=== PATIENT | male | born 1985 | race African-American/Black ===

== ENCOUNTER 2019-10-02 11:05 | Inpatient (IN) | payer OTHER ==
--- NOTE | 2019-10-02 12:10 | PDOC ---
History of Present Illness - General Chief Complaint: Edema Stated Complaint: EDEMA Time Seen by Provider: 10/02/19 11:27 - History of Present Illness Initial Comments: 34M PMH seizures (no longer on AEDs), "liver sensitivity" presenting with one year of b/l LE edema and LEWIS. Mother at bedside was concerned about pt's breathing and edema because mother has CHF. Pt states has had LEWIS for a year but noticed it may have worsened in the past week. Denies f/c, cp/palpitations, orthopnea, n/v, abd pain, GI or sx. Endorses b/l calf tightness when flexing at knee. Denies cough/hemoptysis, recent travel, recent surgery/immobilization. No premature cardiac or ACS in family. NKDA No PCP Denies tobacco Endorses occasional etoh Past History - Past Medical History Allergies/Adverse Reactions: Allergies Allergy/AdvReac Type Severity Reaction Status Date / Time No Known Allergies Allergy Verified 10/02/19 11:14 Home Medications: Ambulatory Orders levETIRAcetam [Keppra -] 500 mg PO BID 10/02/19 Carvedilol [Coreg -] 25 mg PO BID #60 tablet 10/07/19 Furosemide [Lasix -] 20 mg PO DAILY #30 tablet 10/07/19 Isosorbide Mononitrate [Ismo -] 20 mg PO BIDISMO #60 tablet 10/07/19 Magnesium Oxide [Mag-Ox -] 400 mg PO DAILY #30 tablet 10/07/19 Potassium Chloride [K-Dur -] 40 meq PO DAILY #30 tablet.er 10/07/19 Sacubitril/Valsartan [Entresto 24 mg-26 mg Tablet] 1 tab PO BID #60 tablet 10/07 Spironolactone [Aldactone -] 25 mg PO DAILY #30 tablet 10/07/19 hydrALAZINE HCL [Apresoline -] 25 mg PO BID #60 tablet 10/07/19 COPD: No Seizures: Yes (LAST 2019 ON KEPPRA) - Immunization History Immunization Up to Date: No - Psycho Social/Smoking Cessation Hx Smoking History: Never smoked Hx Alcohol Use: No Drug/Substance Use Hx: No Review of Systems - Review of Systems Comments:: CONSTITUTIONAL: Denies F / C HEENT: Denies headache, lightheadedness, dizziness, changes in vision / hearing , diplopia RESP: Endorses LEWIS, unchanged. Denies orthopnea. CARD: Denies chest pain, palpitations GI: Denies N / V / D, abdominal pain, bloody stool, inability to tolerate PO : Denies dysuria, frequency SKIN: Denies rashes NEURO: Denies numbness, tingling, weakness MSK: Denies back pain *Physical Exam - Vital Signs Last Vital Signs Temp Pulse Resp BP Pulse Ox 97.0 F L 74 18 158/123 H 99 10/02/19 11:17 10/02/19 11:17 10/02/19 11:17 10/02/19 11:17 10/02/19 11:17 - Physical Exam GEN: Well appearing, NAD, comfortable. AAOx3. HEENT: NC/AT, EOMI, PERRL. No facial asymmetry. Moist mucous membranes. Normal voice. Supple neck w/ FROM. CV: S1/S2, tachycardic, +gallop. No JVD. LUNG: CTAB, no wheezes, crackles GI: Soft, ndnt, +BS, no guarding, no rebound. EXTREMITIES: 2+ distal pulses. 3+ pitting edema b/l LE up to thighs SKIN: Warm, dry, no rashes appreciated. PSYCH: Normal mood and affect. NEURO: Moving all extremities ED Treatment Course - LABORATORY CBC & Chemistry Diagram: 10/04/19 06:00 10/07/19 06:00 - RADIOLOGY Radiology Studies Ordered: Category Date Time Status CHEST PA & LAT [RAD] Stat Radiology 10/02/19 11:48 Ordered Medical Decision Making - Medical Decision Making 10/02/19 11:59 34M c/o 1 year of b/l LE edema and LEWIS. 3+ pitting edema up to thighs; +gallop on heart exam, no JVD; clear lungs Given chronicity of sx - less likely VTE. considering thyroid, vascular pathology. Likely CHF though patient is young. - CBC, CMP, Cardiac, TSH, BNP - EKG - CXR EKG 1122 HR 124 WA 138 QRS 86 QTc 485 Sinus tachycardia, nonspecific t-wave abnormalities 10/02/19 12:32 Bedside ECHO showing ventricular dilation, poor cardiac squeeze, small pericardial effusion 10/02/19 13:36 PA/LAT CXR shows enlarged globular heart 10/02/19 13:49 labs reviewed trop 0.08 BNP [id number] admit for CHF Discharge - Discharge Information Problems reviewed: Yes Clinical Impression/Diagnosis: Congestive heart failure Qualifiers: Heart failure type: combined systolic and diastolic Heart failure chronicity: acute on chronic Qualified Code(s): I50.43 - Acute on chronic combined systolic (congestive) and diastolic (congestive) heart failure Condition: Stable - Admission Yes - Follow up/Referral - Patient Discharge Instructions - Post Discharge Activity
[2019-10-02 12:54] LABS: BASO % 0.4 % (0-2.0); EOS % 0.3 % (0-4.5); HEMATOCRIT 44.5 % (35.4-49); HEMOGLOBIN 14.4 GM/dL (11.7-16.9); LYMPH % 11.9 % (8-40); MCH 28.8 pg (25.7-33.7); MCHC 32.4 g/dl (32.0-35.9); MEAN CELL VOLUME 88.8 fl (80-96); MEAN PLT VOLUME 8.5 fl (7.5-11.1); MONO % 6.3 % (3.8-10.2); NEUT % 81.1 % (42.8-82.8); PLATELET COUNT 226 K/MM3 (134-434); RBC 5.01 M/mm3 (4.00-5.60); WHITE BLOOD COUNT 5.9 K/mm3 (4.0-10.0)
[2019-10-02 13:34] LABS: ALBUMIN 2.9 g/dl (3.4-5.0); BILIRUBIN,TOTAL 2.7 mg/dL (0.2-1); BLOOD UREA NITROGEN 26.6 mg/dL (7-18); CALCIUM 9.3 mg/dL (8.5-10.1); CREATININE 1.9 mg/dL (0.55-1.3); N-TERMINAL BNP 16050.6 pg/ml (5-125); POTASSIUM 4.6 mmol/L (3.5-5.1); TOT PROT 6.7 g/dl (6.4-8.2)
--- NOTE | 2019-10-02 14:03 | CON.CARD ---
Consult Consult Specialty:: Cardiology Referred by:: Emergency Medicine Reason for Consultation:: Newly diagnosed cardiomyopathy - History of Present Illness Chief Complaint: Dyspnea, LE edema History of Present Illness: 34M PMH seizure d/o, family h/o dilated cardiomyopathy (mother) presenting with progressive b/l LE edema, LEWIS and decreased exercise capacity. Patient denies chest pain, palpitations, near or true syncope, palpitations, orthopnea, PND, flu-like illness. Occasional ETOH, denies toxic habits. NKDA No PCP Denies tobacco Endorses occasional etoh - History Source History Provided By: Patient Limitations to Obtaining History: No Limitations - Alcohol/Substance Use Hx Alcohol Use: No - Smoking History Smoking history: Never smoked Home Medications - Allergies Allergies/Adverse Reactions: Allergies Allergy/AdvReac Type Severity Reaction Status Date / Time No Known Allergies Allergy Verified 10/02/19 11:14 - Home Medications Home Medications: Ambulatory Orders levETIRAcetam [Keppra -] 500 mg PO BID 10/02/19 Review of Systems - Review of Systems Cardiovascular: reports: Edema, Shortness of Breath Respiratory: reports: Exercise Intolerance, SOB, SOB on Exertion Vital Signs: Vital Signs Temperature 97.0 F L 10/02/19 11:17 Pulse Rate 74 10/02/19 11:17 Respiratory Rate 18 10/02/19 11:17 Blood Pressure 158/123 H 10/02/19 11:17 O2 Sat by Pulse Oximetry (%) 99 10/02/19 11:17 Constitutional: Yes: No Distress, Calm Neck: Yes: Supple Respiratory: Yes: Regular, Diminished, On Nasal O2 Gastrointestinal: Yes: Normal Bowel Sounds, Soft Cardiovascular: Yes: Tachycardia JVD: No Carotid Bruit: No Heart Sounds: Yes: S1, S2 Murmur: Yes: Systolic Murmur, Grade 1 Extremities: Yes: Other (Warm and well-perfused) Edema: Yes Edema: LLE: 2+, RLE: 2+ - Other Data Labs, Other Data: CBC, BMP 10/02/19 12:30 10/02/19 12:30 Troponin, BNP 10/02/19 12:30 Troponin I 0.08 H B-Natriuretic Peptide 24691.6 H Troponin, BNP 10/02/19 12:30 Troponin I 0.08 H B-Natriuretic Peptide 40465.6 H Sinus tachycardia @124 LAE, LAD nonspec ST-T changes Prior Cardiac Procedures: PTCA with Stent Imaging - Results Chest X-ray: Report Reviewed (Marked cardiomyopathy) Problem List - Problems (1) Hypertensive heart and chronic kidney disease Code(s): I13.10 - HYP HRT & CHR KDNY DIS W/O HRT FAIL, W STG 1-4/UNSP CHR KDNY Qualifiers: Chronic kidney disease stage: unspecified stage Heart failure presence: with heart failure Heart failure type: combined systolic and diastolic Heart failure chronicity: acute Qualified Code(s): I13.0 - Hypertensive heart and chronic kidney disease with heart failure and stage 1 through stage 4 chronic kidney disease, or unspecified chronic kidney disease; I50.41 - Acute combined systolic (congestive) and diastolic (congestive) heart failure (2) Acute kidney injury Code(s): N17.9 - ACUTE KIDNEY FAILURE, UNSPECIFIED (3) Congestive heart failure Code(s): I50.9 - HEART FAILURE, UNSPECIFIED Qualifiers: Heart failure type: combined systolic and diastolic Heart failure chronicity: acute on chronic Qualified Code(s): I50.43 - Acute on chronic combined systolic (congestive) and diastolic (congestive) heart failure (4) Subendocardial ischemia Code(s): I24.8 - OTHER FORMS OF ACUTE ISCHEMIC HEART DISEASE Assessment/Plan 1. Acute on chronic systolic heart failure suspicious of newly diagnosed cardiomyopathy (likely familial as mother also has dilated cardiomyopathy) 2. Seizure d/o on AED 3. Sinus tachycardia 4. JUNAID referable to #1, unknown baseline 5. Subendocardial ischemia 6. Hypertensive cardiomyopathy with failure P:1. IV diuresis with monitor diuretic response, renal fxn and electrolytes 2. Carvedilol 6.25 bid, Diovan 80 qd once renal fxn at baseline, with uptitration as hemodynamics tolerate 3. F/u echocardiogram to assess ventricular and valve fxn, renal U/S, trend troponins to document peak, Ha1c, TFT and lipid panel, if newly diagnosed cardiomyopathy would benefit from R&LHc to establish etiology 4. Thank you for consultative opportunity
--- NOTE | 2019-10-02 14:38 | HP ---
Admitting History and Physical - Primary Care Physician PCP: Diego Ashton - Admission History of Present Illness: 34M PMH seizure d/o, family h/o dilated cardiomyopathy (mother) presenting with progressive b/l LE edema, LEWIS and decreased exercise capacity. Patient denies chest pain, palpitations, near or true syncope, palpitations, orthopnea, PND, flu-like illness. Occasional ETOH, denies toxic habits. - Smoking History Smoking history: Never smoked - Alcohol/Substance Use Hx Alcohol Use: No Home Medications - Allergies Allergies/Adverse Reactions: Allergies Allergy/AdvReac Type Severity Reaction Status Date / Time No Known Allergies Allergy Verified 10/02/19 11:14 - Home Medications Home Medications: Ambulatory Orders levETIRAcetam [Keppra -] 500 mg PO BID 10/02/19 Physical Examination Vital Signs: Vital Signs Temperature 97.0 F L 10/02/19 11:17 Pulse Rate 120 H 10/02/19 14:30 Respiratory Rate 34 H 10/02/19 14:30 Blood Pressure 158/122 H 10/02/19 14:30 O2 Sat by Pulse Oximetry (%) 100 10/02/19 14:30 Constitutional: Yes: No Distress HENT: Yes: Atraumatic Neck: Yes: Supple Cardiovascular: Yes: Regular Rate and Rhythm Respiratory: Yes: Rhonchi Gastrointestinal: Yes: Normal Bowel Sounds Extremities: Yes: WNL Edema: Yes Edema: LLE: 2+, RLE: 2+ Neurological: Yes: Alert, Oriented Labs: CBC, BMP 10/02/19 12:30 10/02/19 12:30 Problem List - Problems (1) Acute kidney injury Code(s): N17.9 - ACUTE KIDNEY FAILURE, UNSPECIFIED (2) Congestive heart failure Assessment/Plan: on iv lasix cardio on board Code(s): I50.9 - HEART FAILURE, UNSPECIFIED Qualifiers: Heart failure type: combined systolic and diastolic Heart failure chronicity: acute on chronic Qualified Code(s): I50.43 - Acute on chronic combined systolic (congestive) and diastolic (congestive) heart failure (3) Hypertensive heart and chronic kidney disease Code(s): I13.10 - HYP HRT & CHR KDNY DIS W/O HRT FAIL, W STG 1-4/UNSP CHR KDNY Qualifiers: Chronic kidney disease stage: unspecified stage Heart failure presence: with heart failure Heart failure type: combined systolic and diastolic Heart failure chronicity: acute Qualified Code(s): I13.0 - Hypertensive heart and chronic kidney disease with heart failure and stage 1 through stage 4 chronic kidney disease, or unspecified chronic kidney disease; I50.41 - Acute combined systolic (congestive) and diastolic (congestive) heart failure (4) Subendocardial ischemia Code(s): I24.8 - OTHER FORMS OF ACUTE ISCHEMIC HEART DISEASE Assessment/Plan Laboratory Tests 10/02/19 10/02/19 12:30 12:30 WBC 5.9 RBC 5.01 Hgb 14.4 Hct 44.5 MCV 88.8 MCH 28.8 MCHC 32.4 RDW 20.0 H Plt Count 226 MPV 8.5 Absolute Neuts (auto) 4.8 Neutrophils % 81.1 Lymphocytes % 11.9 Monocytes % 6.3 Eosinophils % 0.3 Basophils % 0.4 Nucleated RBC % 0 Sodium 140 Potassium 4.6 Chloride 105 Carbon Dioxide 26 Anion Gap 9 BUN 26.6 H Creatinine 1.9 H Est GFR (CKD-EPI)AfAm 52.89 Est GFR (CKD-EPI)NonAf 45.63 Random Glucose 91 Calcium 9.3 Total Bilirubin 2.7 H AST 37 ALT 39 Alkaline Phosphatase 208 H Creatine Kinase 158 Creatine Kinase Index 2.8 CK-MB (CK-2) 4.5 H Troponin I 0.08 H B-Natriuretic Peptide 65080.6 H Total Protein 6.7 Albumin 2.9 L TSH 3.93 H Active Medications Generic Name Dose Route Start Last Admin Trade Name Freq PRN Reason Stop Dose Admin Carvedilol 6.25 mg 10/02/19 14:24 10/02/19 14:49 Coreg - PO 6.25 mg BID MARIELA Administration Furosemide 40 mg 10/02/19 14:23 10/02/19 14:49 Lasix Injection - IVPUSH 40 mg BID@0600,1400 MARIELA Administration Heparin Sodium (Porcine) 5,000 unit 10/02/19 22:00 Heparin - SQ BID MARIELA Active Medications Generic Name Dose Route Start Last Admin Trade Name Freq PRN Reason Stop Dose Admin Carvedilol 12.5 mg 10/03/19 12:03 Coreg - PO BID MARIELA Furosemide 40 mg 10/02/19 14:23 10/03/19 14:25 Lasix Injection - IVPUSH 40 mg BID@0600,1400 MARIELA Administration Heparin Sodium (Porcine) 5,000 unit 10/02/19 22:00 10/03/19 11:15 Heparin - SQ 5,000 unit BID MARIELA Administration Hydralazine HCl 25 mg 10/03/19 12:15 10/03/19 13:25 Apresoline - PO 25 mg BID MARIELA Administration Isosorbide Mononitrate 10 mg 10/03/19 17:00 [facility]
[2019-10-02] MEDS ORDERED: CARVEDILOL 3.125 MG TABLET (FP) ONE (14:45)
[2019-10-02] MEDS ORDERED: FUROSEMIDE 40 MG/4 ML INJECTABLE VIAL ONE (14:45)
[2019-10-02] MEDS: CARVEDILOL 6.25 MG TABLET (FP) PO SCH ×2 (14:49→22:32)
[2019-10-02] MEDS: FUROSEMIDE 40 MG/4 ML INJECTABLE VIAL IVPUSH SCH (14:49)
--- NOTE | 2019-10-02 15:17 | PDOC ---
Attending Attestation - Resident Resident Name: Flex Vegas - ED Attending Attestation I have performed the following: I have examined & evaluated the patient, The case was reviewed & discussed with the resident, I agree w/resident's findings & plan, Exceptions are as noted - HPI HPI: 10/02/19 15:16 34 years old with seizure disorder family history of dilated cardiomyopathy with progressive lower extremity weakness dyspnea on exertion and decreased exercise capacity for the last week patient has had this edema for greater than 1 year but his symptoms have been substantially worse over the last week - Physicial Exam PE: 10/02/19 15:18 Vitals: Triage Vital signs reviewed General Appearance: No acute distress, well nourished well developed, Head: Atraumatic, Cardiac: Regular rate and rhythym systolic ejection murmur is coming down Lungs: Clear to auscultation bilateral, good air movement bilaterally, Abdomen: Soft, non distended, normal bowel sounds, non tender to palpation Extremities: 2+ pitting edema bilaterally lower extremities Skin: Warm and dry, no rashes or lesions, no rash, no petechiae Psych: Normal mood, normal affect - Medical Decision Making 10/02/19 15:18 Acute on chronic CHF never formally diagnosed patient will require diuresis formal echo with careful electrolyte monitoring We will admit to medicine for further management and cardiology consultation
[2019-10-02] MEDS ORDERED: HEPARIN NA (PORCINE) 5,000 UNITS/ML 1ML VIAL ONE (22:25)
[2019-10-02] MEDS: HEPARIN NA (PORCINE) 5,000 UNITS/ML 1ML VIAL SQ SCH (22:32)
[2019-10-03] MEDS ORDERED: FUROSEMIDE 40 MG/4 ML INJECTABLE VIAL ONE (06:06)
[2019-10-03] MEDS: FUROSEMIDE 40 MG/4 ML INJECTABLE VIAL IVPUSH SCH ×2 (06:19→14:25)
[2019-10-03 07:56] LABS: BLOOD UREA NITROGEN 27.2 mg/dL (7-18); CALCIUM 9.3 mg/dL (8.5-10.1); POTASSIUM 4.3 mmol/L (3.5-5.1)
[2019-10-03] MEDS: HEPARIN NA (PORCINE) 5,000 UNITS/ML 1ML VIAL SQ SCH ×2 (11:15→21:19)
[2019-10-03] MEDS: CARVEDILOL 6.25 MG TABLET (FP) PO SCH (11:15)
--- NOTE | 2019-10-03 11:28 | ECHO ---
Version: 1 Name: LISA OLIVARES Exam: Adult Echocardiogram Study Date: 10/03/2019, 10:00 AM Age: 34 Years MMode/2D Measurements & Calculations IVSd: 1.36 cm LVIDs: 5.9 cm LVIDd: 6.9 cm LVPWd: 1.42 cm LAV (MOD-bp): 88.5 ml LVOT diam: 2.04 cm Ao root diam: 2.36 cm LA dimension: 4.1 cm Doppler Measurements & Calculations MV E max jose raul: 50.7 cm/sec Med E/e': 13.7 MV A max jose raul: 46.0 cm/sec Med Peak E' Jose Raul: 3.7 cm/sec MV E/A: 1.10 Lat E/e': 13.7 Lat Peak E' Jose Raul: 3.7 cm/sec MR max P.6 mmHg Ao max P.70 mmHg Ao V2 max: 65.2 cm/sec TR max jose raul: 188.0 cm/sec TR max P.3 mmHg Procedure A complete two-dimensional transthoracic echocardiogram was performed (2D, M-mode, Doppler and color flow Doppler). Left Ventricle The left ventricle is mildly dilated. Left ventricular systolic function is severely reduced. Ejecti on Fraction = 10%. Fused E/A wave precludes diastolic assessment. Right Ventricle The right ventricle is mildly dilated. The right ventricular systolic function is moderately reduced . Atria The left atrium is mildly dilated. The right atrium is moderately dilated. Mitral Valve The mitral valve is normal in structure and function. There is moderate mitral regurgitation. Tricuspid Valve Tricuspid leaflets do not coapt. There is severe Tricuspid regurgitation. PASP cannot be estimated. Assuming the RA pressure is 20 mmHg. Aortic Valve The aortic valve is normal in structure and function. No hemodynamically significant valvular aortic stenosis. No aortic regurgitation is present. Pulmonic Valve The pulmonic valve is normal in structure and function. Great Vessels The aortic root is normal size. Pericardium/Pleura Moderate pericardial effusion (1-2 cm). There are no echocardiographic indications of cardiac tampon luep. Summary Statements The left ventricle is mildly dilated. Left ventricular systolic function is severely reduced. The right ventricle is mildly dilated. The right ventricular systolic function is moderately reduced . Tricuspid leaflets do not coapt. There is severe Tricuspid regurgitation. PASP cannot be estimated. Moderate pericardial effusion (1-2 cm). There are no echocardiographic indications of cardiac tampon lupe. Moy Velazquez 10/03/2019, 11:27 AM Ordering Physician: Tyson Lechuga Performed By: Eileen Jurado
--- NOTE | 2019-10-03 11:30 | EKG ---
Test Reason : Blood Pressure : / mmHG Vent. Rate : 124 BPM Atrial Rate : 124 BPM P-R Int : 138 ms QRS Dur : 086 ms QT Int : 338 ms P-R-T Axes : 061 -48 013 degrees QTc Int : 485 ms SINUS TACHYCARDIA POSSIBLE LEFT ATRIAL ENLARGEMENT LEFT ANTERIOR FASCICULAR BLOCK NONSPECIFIC ST AND T WAVE ABNORMALITY ABNORMAL ECG Confirmed by Praneeth Bowman MD ([id number]) on 10/03/2019 11:30:28 AM Referred By: Confirmed By:Praneeth Bowman MD
--- NOTE | 2019-10-03 11:53 | PN ---
Progress Note, Physician Chief Complaint: Events noted Not in distress History of Present Illness: Patient was seen and examined. Awake and alert. Chart was reviewed Denies chest pain, SOB or palpitations this am - Current Medication List Current Medications: Active Medications Carvedilol (Coreg -) 6.25 mg PO BID [facility] Last Admin: 10/03/19 11:15 Dose: 6.25 mg Furosemide (Lasix Injection -) 40 mg IVPUSH BID@0600,1400 [facility] Last Admin: 10/03/19 06:19 Dose: 40 mg Heparin Sodium (Porcine) (Heparin -) 5,000 unit SQ BID [facility] Last Admin: 10/03/19 11:15 Dose: 5,000 unit - Objective Vital Signs: Vital Signs Temperature 97.9 F 10/03/19 07:00 Pulse Rate 98 H 10/03/19 11:17 Respiratory Rate 28 H 10/03/19 11:17 Blood Pressure 141/104 H 10/03/19 11:17 O2 Sat by Pulse Oximetry (%) 100 10/03/19 11:17 Eyes: Yes: PERRL HENT: Yes: Atraumatic Neck: Yes: Supple Cardiovascular: Yes: Regular Rate and Rhythm, S1, S2 Respiratory: Yes: CTA Bilaterally Gastrointestinal: Yes: Normal Bowel Sounds, Soft Edema: Yes Edema: LLE: 1+, RLE: 1+ Additional Findings/Remarks: - Review of Systems Constitutional: denies: Chills, Fever Cardiovascular: (+) Chest Pain, Shortness of Breath. denies: Palpitations Respiratory: denies Cough, (+) SOB, SOB on Exertion, denies: Wheezing. denies: Orthopnea, PND Genitourinary: denies: Discharge, Hematuria Neurological: denies: Dizziness, Headache, Seizure, Syncope Labs: CBC, BMP 10/02/19 12:30 10/03/19 06:00 Problem List - Problems (1) Dilated cardiomyopathy Code(s): I42.0 - DILATED CARDIOMYOPATHY (2) HFrEF (heart failure with reduced ejection fraction) Code(s): I50.20 - UNSPECIFIED SYSTOLIC (CONGESTIVE) HEART FAILURE Qualifiers: Heart failure chronicity: acute on chronic Qualified Code(s): I50.23 - Acute on chronic systolic (congestive) heart failure (3) Acute kidney injury Code(s): N17.9 - ACUTE KIDNEY FAILURE, UNSPECIFIED (4) Congestive heart failure Code(s): I50.9 - HEART FAILURE, UNSPECIFIED Qualifiers: Heart failure type: combined systolic and diastolic Heart failure chronicity: acute on chronic Qualified Code(s): I50.43 - Acute on chronic combined systolic (congestive) and diastolic (congestive) heart failure (5) Hypertensive heart and chronic kidney disease Code(s): I13.10 - HYP HRT & CHR KDNY DIS W/O HRT FAIL, W STG 1-4/UNSP CHR KDNY Qualifiers: Chronic kidney disease stage: unspecified stage Heart failure presence: with heart failure Heart failure type: combined systolic and diastolic Heart failure chronicity: acute Qualified Code(s): I13.0 - Hypertensive heart and chronic kidney disease with heart failure and stage 1 through stage 4 chronic kidney disease, or unspecified chronic kidney disease; I50.41 - Acute combined systolic (congestive) and diastolic (congestive) heart failure (6) Subendocardial ischemia Code(s): I24.8 - OTHER FORMS OF ACUTE ISCHEMIC HEART DISEASE Assessment/Plan 1. Acute on chronic systolic heart failure with newly diagnosed dilated cardiomyopathy (likely familial as mother also has dilated cardiomyopathy), HFrEF 2. Seizure disorder 3. Sinus tachycardia 4. JUNAID 5. Subendocardial ischemia 6. HTN PLAN: 1. IV diuresis with monitoring renal function and electrolytes 2. Increase Carvedilol to 12.5 mg BID, add Isosorbide Rock 30 mg QD and Hydralazine 25 mg BID. Other option is to use ARB if renal function stabilizes or to use Entresto. Consider using Eplerenone or Spironolactone if renal function stabilizes. 3. Echocardiography was reviewed with severely reduced LVEF. Consider right and left heart cardiac catheterization once clinically stabilized. 4. Consider LifeVest fitting prior to discharge and if LVEF remains less than 35 % after 90 days, will need ICD for primary prophylaxis 5. Consider genetic testing as outpatient Further plans are to follow Riley Francisco MD
[2019-10-03] MEDS ORDERED: hydrALAZINE HCL 25 MG TABLET (FP) ONE (13:23)
[2019-10-03] MEDS: hydrALAZINE HCL 25 MG TABLET (FP) PO SCH ×2 (13:25→21:19)
--- NOTE | 2019-10-03 13:55 | PN ---
Progress Note, Physician - Current Medication List Current Medications: Active Medications Carvedilol (Coreg -) 12.5 mg PO BID [facility] Furosemide (Lasix Injection -) 40 mg IVPUSH BID@0600,1400 [facility] Last Admin: 10/03/19 06:19 Dose: 40 mg Heparin Sodium (Porcine) (Heparin -) 5,000 unit SQ BID [facility] Last Admin: 10/03/19 11:15 Dose: 5,000 unit Hydralazine HCl (Apresoline -) 25 mg PO BID [facility] Last Admin: 10/03/19 13:25 Dose: 25 mg Isosorbide [facility] (Is[facility] -) [facility] - Objective Vital Signs: Vital Signs Temperature 97.9 F 10/03/19 07:00 Pulse Rate 95 H 10/03/19 13:21 Respiratory Rate 10/03/19 13:21 Blood Pressure 142/99 10/03/19 13:21 O2 Sat by Pulse Oximetry (%) 100 10/03/19 13:21 Constitutional: Yes: No Distress HENT: Yes: Atraumatic Neck: Yes: Supple Cardiovascular: Yes: Regular Rate and Rhythm Respiratory: Yes: CTA Bilaterally Gastrointestinal: Yes: Normal Bowel Sounds Extremities: Yes: WNL Edema: Yes Edema: LLE: 2+, RLE: 2+ Neurological: Yes: Alert, Oriented Labs: CBC, BMP 10/02/19 12:30 10/03/19 06:00 Problem List - Problems (1) Acute kidney injury Assessment/Plan: renal consult Code(s): N17.9 - ACUTE KIDNEY FAILURE, UNSPECIFIED (2) Congestive heart failure Assessment/Plan: on iv lasix cardio on board Code(s): I50.9 - HEART FAILURE, UNSPECIFIED Qualifiers: Heart failure type: combined systolic and diastolic Heart failure chronicity: acute on chronic Qualified Code(s): I50.43 - Acute on chronic combined systolic (congestive) and diastolic (congestive) heart failure (3) Hypertensive heart and chronic kidney disease Assessment/Plan: on meds Code(s): I13.10 - HYP HRT & CHR KDNY DIS W/O HRT FAIL, W STG 1-4/UNSP CHR KDNY Qualifiers: Chronic kidney disease stage: unspecified stage Heart failure presence: with heart failure Heart failure type: combined systolic and diastolic Heart failure chronicity: acute Qualified Code(s): I13.0 - Hypertensive heart and chronic kidney disease with heart failure and stage 1 through stage 4 chronic kidney disease, or unspecified chronic kidney disease; I50.41 - Acute combined systolic (congestive) and diastolic (congestive) heart failure (4) Subendocardial ischemia Code(s): I24.8 - OTHER FORMS OF ACUTE ISCHEMIC HEART DISEASE
[2019-10-03 17:20] VITALS: BMI 27.8
[2019-10-03] MEDS ORDERED: PT OWN MED DRAWER 7, Y5N ONE (18:03)
[2019-10-03] MEDS: ISOSORBIDE MONONITRATE 10 MG TABLET PO SCH (18:45)
[2019-10-03] MEDS: CARVEDILOL 12.5 MG TABLET (FP) PO SCH (21:19)
[2019-10-04] MEDS: FUROSEMIDE 40 MG/4 ML INJECTABLE VIAL IVPUSH SCH ×2 (05:50→13:24)
[2019-10-04 08:12] LABS: BASO % 0.2 % (0-2.0); EOS % 0.5 % (0-4.5); HEMATOCRIT 44.3 % (35.4-49); HEMOGLOBIN 14.7 GM/dL (11.7-16.9); LYMPH % 20.1 % (8-40); MCHC 33.2 g/dl (32.0-35.9); MEAN CELL VOLUME 87.4 fl (80-96); MEAN PLT VOLUME 8.6 fl (7.5-11.1); MONO % 6.4 % (3.8-10.2); NEUT % 72.8 % (42.8-82.8); PLATELET COUNT 237 K/MM3 (134-434); RBC 5.07 M/mm3 (4.00-5.60); RDW 19.2 % (11.9-15.9); WHITE BLOOD COUNT 4.4 K/mm3 (4.0-10.0)
[2019-10-04 08:37] LABS: ALBUMIN 2.4 g/dl (3.4-5.0); BLOOD UREA NITROGEN 25.8 mg/dL (7-18); CALCIUM 8.7 mg/dL (8.5-10.1); CREATININE 1.8 mg/dL (0.55-1.3); POTASSIUM 3.6 mmol/L (3.5-5.1); TOT PROT 5.9 g/dl (6.4-8.2)
--- NOTE | 2019-10-04 09:16 | CONSULT ---
Consultation: REQUESTING PROVIDER: Dr. 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 seen a tong carrier- is mother has history of diastolic CHF (diagnosed at age 63) notable labs in ED- Cr 1.9 ; BNP <71346- echo showed severely reduced EF- renal US results pending; patient started on lasix IV 40 BID REVIEW OF SYSTEMS: CONSTITUTIONAL: Absent: fever, chills, diaphoresis, generalized weakness, malaise, loss of appetite, weight change HEENT: Absent: rhinorrhea, nasal congestion, throat pain, throat swelling, difficulty swallowing, mouth swelling, ear pain, eye pain, visual changes CARDIOVASCULAR: Present: peripheral edema Absent: chest pain, syncope, palpitations, irregular heart rate, lightheadedness, RESPIRATORY: Present: dyspnea on exertion, shortness of breath Absent: cough, orthopnea, wheezing, stridor, hemoptysis GASTROINTESTINAL: Absent: abdominal pain, abdominal distension, nausea, vomiting, diarrhea, constipation, melena, hematochezia GENITOURINARY: Absent: dysuria, frequency, urgency, hesitancy, hematuria, flank pain, genital pain MUSCULOSKELETAL: Absent: myalgia, arthralgia, joint swelling, back pain, neck pain SKIN: Absent: rash, itching, pallor HEMATOLOGIC/IMMUNOLOGIC: Absent: easy bleeding, easy bruising, lymphadenopathy, frequent infections ENDOCRINE: Absent: unexplained weight gain, unexplained weight loss, heat intolerance, cold intolerance NEUROLOGIC: Absent: headache, focal weakness or paresthesias, dizziness, unsteady gait, seizure, mental status changes, bladder or bowel incontinence PSYCHIATRIC: Absent: anxiety, depression, suicidal or homicidal ideation, hallucinations. PHYSICAL EXAMINATION Vital Signs - 24 hr 10/03/19 10/03/19 10/03/19 11:17 13:21 14:23 Temperature 98 F Pulse Rate 98 H Pulse Rate [ 98 H 95 H Apical] Respiratory 28 H 20 22 H Rate Blood Pressure 138/112 H Blood Pressure 141/104 H 142/99 [Right Arm] O2 Sat by Pulse 100 100 Oximetry (%) 10/03/19 10/03/19 10/03/19 15:38 17:02 19:00 Temperature 98.5 F 97.8 F Pulse Rate 98 H 95 H Pulse Rate [ Apical] Respiratory 21 H Rate Blood Pressure 127/90 131/101 H Blood Pressure [Right Arm] O2 Sat by Pulse 98 Oximetry (%) 10/03/19 10/04/19 10/04/19 21:00 02:00 06:00 Temperature 97.5 F L 97.7 F 97.5 F L Pulse Rate 98 H 91 H 99 H Pulse Rate [ Apical] Respiratory 18 18 18 Rate Blood Pressure 136/99 131/71 126/86 Blood Pressure [Right Arm] O2 Sat by Pulse 99 Oximetry (%) GENERAL: Awake, alert, and fully oriented, in no acute distress. EYES: PEERLA; EOMI; no scleral icterus NECK: no JVD; no lymphadenopathy LUNGS: CTA B/L; no rales/rhonchior wheezing HEART: Regular rate and rhythm, normal S1 and S2 without murmur, rub or gallop. ABDOMEN: Soft, NT/ND +BS in all 4 quadrants MUSCULOSKELETAL: Normal range of motion at all joints. No bony deformities or tenderness. No CVA tenderness. EXTREMITIES; warm well-perfused 2+ pitting edema B/L NEUROLOGICAL: Cranial nerves II-XII intact. Normal speech. Normal gait. PSYCHIATRIC: Cooperative. Good eye contact. Appropriate mood and affect. SKIN: Warm, dry, normal turgor, no rashes or lesions noted. Laboratory Results - last 24 hr 10/04/19 10/04/19 06:00 06:00 WBC 4.4 RBC 5.07 Hgb 14.7 Hct 44.3 MCV 87.4 MCH 29.0 MCHC 33.2 RDW 19.2 H Plt Count 237 MPV 8.6 Absolute Neuts (auto) 3.2 Neutrophils % 72.8 Lymphocytes % 20.1 D Monocytes % 6.4 Eosinophils % 0.5 Basophils % 0.2 Nucleated RBC % 0 Sodium 137 Potassium 3.6 Chloride 97 L Carbon Dioxide 30 Anion Gap 10 BUN 25.8 H Creatinine 1.8 H Est GFR (CKD-EPI)AfAm 56.46 Est GFR (CKD-EPI)NonAf 48.71 Random Glucose 78 Calcium 8.7 Total Bilirubin 2.0 H AST 33 ALT 34 Alkaline Phosphatase 188 H Total Protein 5.9 L Albumin 2.4 L Active Medications Generic Name Dose Route Start Last Admin Trade Name Jaylon PRN Reason Stop Dose Admin Carvedilol 12.5 mg 10/03/19 12:03 10/03/19 21:19 Coreg - PO 12.5 mg BID MARIELA Administration Furosemide 40 mg 10/02/19 14:23 10/04/19 05:50 Lasix Injection - IVPUSH 40 mg BID@0600,1400 MARIELA Administration Heparin Sodium (Porcine) 5,000 unit 10/02/19 22:00 10/03/19 21:19 Heparin - SQ 5,000 unit BID MARIELA Administration Hydralazine HCl 25 mg 10/03/19 12:15 10/03/19 21:19 Apresoline - PO 25 mg BID MARIELA Administration Isosorbide Mononitrate 10 mg 10/03/19 17:00 10/03/19 18:45 Ismo - PO Not Given BIDISMO [facility] ASSESSMENT/PLAN: 34 y.o male with no PMH presents to the ED with complaints of dyspnea on exertion and lower extremity edema for the past few months found to have an elevated Cr #JUNAID #new onset CHF f/u renal US results f/u urine studies c/w IV lasix monitor I's and O's repeat BMP in AM avoid NSAIDs; avoid nephrotoxic agents low sodium diet fluid restriction Dispo: We will continue to follow the patient. Thank you for this consultative opportunity. Problem List - Problems (1) Acute kidney injury Code(s): N17.9 - ACUTE KIDNEY FAILURE, UNSPECIFIED (2) Congestive heart failure Code(s): I50.9 - HEART FAILURE, UNSPECIFIED Qualifiers: Heart failure type: combined systolic and diastolic Heart failure chronicity: acute on chronic Qualified Code(s): I50.43 - Acute on chronic combined systolic (congestive) and diastolic (congestive) heart failure (3) Dilated cardiomyopathy Code(s): I42.0 - DILATED CARDIOMYOPATHY Visit type - Emergency Visit Emergency Visit: Yes ED Registration Date: 10/02/19 Care time: The patient presented to the Emergency Department on the above date and was hospitalized for further evaluation of their emergent condition. - New Patient This patient is new to me today: Yes Date on this admission: 10/04/19 - Critical Care Critical Care patient: No ATTENDING PHYSICIAN STATEMENT I saw and evaluated the patient. I reviewed the resident's note and discussed the case with the resident. I agree with the resident's findings and plan as documented. SUBJECTIVE: OBJECTIVE: ASSESSMENT AND PLAN:
[2019-10-04] MEDS: HEPARIN NA (PORCINE) 5,000 UNITS/ML 1ML VIAL SQ SCH ×2 (09:29→21:25)
[2019-10-04] MEDS: CARVEDILOL 12.5 MG TABLET (FP) PO SCH ×2 (09:29→21:26)
[2019-10-04] MEDS: hydrALAZINE HCL 25 MG TABLET (FP) PO SCH ×2 (09:29→21:26)
[2019-10-04] MEDS ORDERED: PT OWN MED DRAWER 7, Y5N ONE (09:31)
[2019-10-04] MEDS: ISOSORBIDE MONONITRATE 10 MG TABLET PO SCH ×2 (09:32→17:21)
[2019-10-04 11:30] LABS: URINE APPEARANCE CLEAR; URINE BILIRUBIN NEGATIVE (NEGATIVE); URINE COLOR YELLOW; URINE GLUCOSE (UA) NEGATIVE (NEGATIVE); URINE KETONE NEGATIVE (NEGATIVE); URINE LEUK ESTERASE NEGATIVE (NEGATIVE); URINE NITRITE NEGATIVE (NEGATIVE); URINE PROTEIN NEGATIVE (NEGATIVE)
--- NOTE | 2019-10-04 11:35 | PN ---
Teaching Attending Note Name of Resident: Jennie De Paz (Nephrology) ATTENDING PHYSICIAN STATEMENT I saw and evaluated the patient. I reviewed the resident's note and discussed the case with the resident. I agree with the resident's findings and plan as documented. Renal Pt is a 34 year old male with pmhx of seizure who presents with shortness of breath and edema. He has had the symptoms for a few years but they have been getting worse. He denies nsaid use. He feels that his shortness of breath improved with meds. pmhx seizure ros edema family hx heart failure in mom nkda Current Medications Generic Name Dose Route Start Last Admin Trade Name Freq PRN Reason Stop Dose Admin Carvedilol 12.5 mg 10/03/19 12:03 10/04/19 09:29 Coreg - PO 12.5 mg BID MARIELA Administration Furosemide 40 mg 10/02/19 14:23 10/04/19 05:50 Lasix Injection - IVPUSH 40 mg BID@0600,1400 MARIELA Administration Heparin Sodium (Porcine) 5,000 unit 10/02/19 22:00 10/04/19 09:29 Heparin - SQ 5,000 unit BID MARIELA Administration Hydralazine HCl 25 mg 10/03/19 12:15 10/04/19 09:29 Apresoline - PO 25 mg BID MARIELA Administration Isosorbide Mononitrate 10 mg 10/03/19 17:00 10/04/19 09:32 Ismo - PO 10 mg BIDISMO MARIELA Administration Laboratory Tests 10/02/19 10/03/19 10/04/19 12:30 06:00 06:00 Sodium 137 Potassium 3.6 Chloride 97 L Carbon Dioxide 30 Anion Gap 10 BUN 25.8 H Creatinine 1.9 H 2.0 H 1.8 H Urine Color Urine Appearance Urine pH Ur Specific [place] Urine Protein Urine Glucose (UA) Urine Ketones Urine Blood Urine Nitrite Urine Bilirubin Urine Urobilinogen Ur Leukocyte Esterase 10/04/19 10:30 Sodium Potassium Chloride Carbon Dioxide Anion Gap BUN Creatinine Urine Color Pending Urine Appearance Pending Urine pH Pending Ur Specific [place] Pending Urine Protein Pending Urine Glucose (UA) Pending Urine Ketones Pending Urine Blood Pending Urine Nitrite Pending Urine Bilirubin Pending Urine Urobilinogen Pending Ur Leukocyte Esterase Pending Last Vital Signs Temp Pulse Resp BP Pulse Ox 97.8 F 95 H 20 128/87 100 10/04/19 10:00 10/04/19 10:00 10/04/19 10:00 10/04/19 10:00 10/04/19 09:00 cardio s1s2 pulm clear GI soft ext plus 2 edema skin tatoos neuro awake and alert Impression 1. JUNAID 2. CHF 3. seizure 4. HTN Plan - cont lasix - follow ua - follow urine studies - follow renal ultrasound - monitor volume status - check program production specialist daily - possible cardiorenal disease however will need more data - echo with severely reduced EF
--- NOTE | 2019-10-04 11:39 | PN ---
Progress Note, Physician History of Present Illness: Bilateral LE edema, LEWIS and decreased exercise capacity improving with diuresis and afterload reduction. - Current Medication List Current Medications: Active Medications Carvedilol (Coreg -) 12.5 mg PO BID [facility] Last Admin: 10/04/19 09:29 Dose: 12.5 mg Furosemide (Lasix Injection -) 40 mg IVPUSH BID@0600,1400 [facility] Last Admin: 10/04/19 05:50 Dose: 40 mg Heparin Sodium (Porcine) (Heparin -) 5,000 unit SQ BID [facility] Last Admin: 10/04/19 09:29 Dose: 5,000 unit Hydralazine HCl (Apresoline -) 25 mg PO BID [facility] Last Admin: 10/04/19 09:29 Dose: 25 mg Isosorbide Mononitrate (Ismo -) 10 mg PO BIDISMO [facility] Last Admin: 10/04/19 09:32 Dose: 10 mg - Objective Vital Signs: Vital Signs Temperature 97.8 F 10/04/19 10:00 Pulse Rate 95 H 10/04/19 10:00 Respiratory Rate 10/04/19 10:00 Blood Pressure 128/87 10/04/19 10:00 O2 Sat by Pulse Oximetry (%) 100 10/04/19 09:00 Constitutional: Yes: No Distress, Calm, Thin Neck: Yes: Supple Cardiovascular: Yes: Regular Rate and Rhythm Respiratory: Yes: Regular, Diminished Gastrointestinal: Yes: Normal Bowel Sounds, Soft Extremities: Yes: Other (Warm and well-perfused) Edema: Yes Edema: LLE: 1+, RLE: 1+ Labs: CBC, BMP 10/04/19 06:00 10/04/19 06:00 - ....Imaging EKG: Report Reviewed (Tele: NSR) Problem List - Problems (1) Hypertensive heart and chronic kidney disease Code(s): I13.10 - HYP HRT & CHR KDNY DIS W/O HRT FAIL, W STG 1-4/UNSP CHR KDNY Qualifiers: Chronic kidney disease stage: unspecified stage Heart failure presence: with heart failure Heart failure type: combined systolic and diastolic Heart failure chronicity: acute Qualified Code(s): I13.0 - Hypertensive heart and chronic kidney disease with heart failure and stage 1 through stage 4 chronic kidney disease, or unspecified chronic kidney disease; I50.41 - Acute combined systolic (congestive) and diastolic (congestive) heart failure (2) Acute kidney injury Code(s): N17.9 - ACUTE KIDNEY FAILURE, UNSPECIFIED (3) Congestive heart failure Code(s): I50.9 - HEART FAILURE, UNSPECIFIED Qualifiers: Heart failure type: combined systolic and diastolic Heart failure chronicity: acute on chronic Qualified Code(s): I50.43 - Acute on chronic combined systolic (congestive) and diastolic (congestive) heart failure (4) Subendocardial ischemia Code(s): I24.8 - OTHER FORMS OF ACUTE ISCHEMIC HEART DISEASE Assessment/Plan 10/03/2019 Echocardiography: Mildly dilated with severely decreased LVEF 10%, mildly dilated RV with mod decreased RV fxn, severe TR, mod pericardial effusion (1-2 cm) 1. Acute on chronic systolic heart failure with newly diagnosed dilated cardiomyopathy (likely familial as mother also has dilated cardiomyopathy), HFrEF 2. Seizure disorder 3. Sinus tachycardia 4. JUNAID 5. Subendocardial ischemia 6. HTN cardiomyopathy with failure PLAN: 1. IV diuresis with monitoring diuretic response, renal function and electrolytes, f/u renal US and urine studies 2. Increase Carvedilol to 25 mg BID, Isosorbide [place] 30 mg QD and Hydralazine 25 mg BID. Entresto and aldosterone inhibition once renal function stabilizes. 3. Right and left heart cardiac catheterization once euvolemic 4. Consider LifeVest fitting prior to discharge and if LVEF remains less than 35 % after 90 days, will need ICD for primary prophylaxis 5. Consider genetic testing as outpatient
[2019-10-04] MEDS ORDERED: CARVEDILOL 12.5 MG TABLET (FP) PO ONE (12:19)
--- NOTE | 2019-10-04 16:58 | PN ---
Progress Note, Physician - Current Medication List Current Medications: Active Medications Carvedilol (Coreg -) 25 mg PO BID [facility] Furosemide (Lasix Injection -) 40 mg IVPUSH BID@0600,1400 [facility] Last Admin: 10/04/19 13:24 Dose: 40 mg Heparin Sodium (Porcine) (Heparin -) 5,000 unit SQ BID [facility] Last Admin: 10/04/19 09:29 Dose: 5,000 unit Hydralazine HCl (Apresoline -) 25 mg PO BID [facility] Last Admin: 10/04/19 09:29 Dose: 25 mg Isosorbide Mononitrate (Ismo -) 10 mg PO BIDISMO [facility] Last Admin: 10/04/19 09:32 Dose: 10 mg - Objective Vital Signs: Vital Signs Temperature 97.4 F L 10/04/19 14:00 Pulse Rate 101 H 10/04/19 14:00 Respiratory Rate 20 10/04/19 14:00 Blood Pressure 115/79 10/04/19 14:00 O2 Sat by Pulse Oximetry (%) 100 10/04/19 09:00 HENT: Yes: Atraumatic Neck: Yes: Supple Cardiovascular: Yes: Regular Rate and Rhythm Respiratory: Yes: CTA Bilaterally Gastrointestinal: Yes: Normal Bowel Sounds Extremities: Yes: WNL Edema: Yes Edema: LLE: 1+, RLE: 1+ Neurological: Yes: Alert, Oriented Labs: CBC, BMP 10/04/19 06:00 10/04/19 06:00 Problem List - Problems (1) Acute kidney injury Assessment/Plan: renal consult Code(s): N17.9 - ACUTE KIDNEY FAILURE, UNSPECIFIED (2) Congestive heart failure Assessment/Plan: on iv lasix cardio on board Code(s): I50.9 - HEART FAILURE, UNSPECIFIED Qualifiers: Heart failure type: combined systolic and diastolic Heart failure chronicity: acute on chronic Qualified Code(s): I50.43 - Acute on chronic combined systolic (congestive) and diastolic (congestive) heart failure (3) Hypertensive heart and chronic kidney disease Assessment/Plan: on meds Code(s): I13.10 - HYP HRT & CHR KDNY DIS W/O HRT FAIL, W STG 1-4/UNSP CHR KDNY Qualifiers: Chronic kidney disease stage: unspecified stage Heart failure presence: with heart failure Heart failure type: combined systolic and diastolic Heart failure chronicity: acute Qualified Code(s): I13.0 - Hypertensive heart and chronic kidney disease with heart failure and stage 1 through stage 4 chronic kidney disease, or unspecified chronic kidney disease; I50.41 - Acute combined systolic (congestive) and diastolic (congestive) heart failure (4) Subendocardial ischemia Code(s): I24.8 - OTHER FORMS OF ACUTE ISCHEMIC HEART DISEASE
[2019-10-04] MEDS ORDERED: IBUPROFEN 600 MG TABLET (FP) PO ONE (21:30)
[2019-10-05] MEDS: FUROSEMIDE 40 MG/4 ML INJECTABLE VIAL IVPUSH SCH ×2 (06:33→13:19)
[2019-10-05 08:11] LABS: BLOOD UREA NITROGEN 23.3 mg/dL (7-18); CALCIUM 8.2 mg/dL (8.5-10.1); CREATININE 1.6 mg/dL (0.55-1.3); POTASSIUM 3.4 mmol/L (3.5-5.1)
[2019-10-05] MEDS ORDERED: POTASSIUM CHLORIDE TABS 20 MEQ TABLET.ER (FP) PO ONE (09:00)
[2019-10-05] MEDS ORDERED: PT OWN MED DRAWER 7, Y5N ONE ×3 (09:30→15:28)
--- NOTE | 2019-10-05 10:23 | PN ---
Progress Note, Physician History of Present Illness: Bilateral LE edema, LEWIS and decreased exercise capacity improving with diuresis and afterload reduction. - Current Medication List Current Medications: Active Medications Carvedilol (Coreg -) 25 mg PO BID [facility] Last Admin: 10/04/19 21:26 Dose: 25 mg Furosemide (Lasix Injection -) 40 mg IVPUSH BID@0600,1400 [facility] Last Admin: 10/05/19 06:33 Dose: 40 mg Heparin Sodium (Porcine) (Heparin -) 5,000 unit SQ BID [facility] Last Admin: 10/04/19 21:25 Dose: 5,000 unit Hydralazine HCl (Apresoline -) 25 mg PO BID [facility] Last Admin: 10/04/19 21:26 Dose: 25 mg [facility]osorbide [facility] ([facility] -) [facility] - Objective Vital Signs: Vital Signs Temperature 97.4 F L 10/05/19 09:42 Pulse Rate 81 10/05/19 09:42 Respiratory Rate 22 H 10/05/19 09:42 Blood Pressure 107/72 10/05/19 09:42 O2 Sat by Pulse Oximetry (%) 100 10/05/19 09:00 Constitutional: Yes: No Distress, Calm, Thin Neck: Yes: Supple Cardiovascular: Yes: Regular Rate and Rhythm Respiratory: Yes: Regular, CTA Bilaterally Gastrointestinal: Yes: Normal Bowel Sounds, Soft Extremities: Yes: Other (Warm and well-perfused) Edema: Yes Edema: LLE: 1+, RLE: 1+ Labs: CBC, BMP 10/04/19 06:00 10/05/19 06:35 - ....Imaging EKG: Report Reviewed (Tele: NSR) Problem List - Problems (1) Hypertensive heart and chronic kidney disease Code(s): I13.10 - HYP HRT & CHR KDNY DIS W/O HRT FAIL, W STG 1-4/UNSP CHR KDNY Qualifiers: Chronic kidney disease stage: unspecified stage Heart failure presence: with heart failure Heart failure type: combined systolic and diastolic Heart failure chronicity: acute Qualified Code(s): I13.0 - Hypertensive heart and chronic kidney disease with heart failure and stage 1 through stage 4 chronic kidney disease, or unspecified chronic kidney disease; I50.41 - Acute combined systolic (congestive) and diastolic (congestive) heart failure (2) Acute kidney injury Code(s): N17.9 - ACUTE KIDNEY FAILURE, UNSPECIFIED (3) Congestive heart failure Code(s): I50.9 - HEART FAILURE, UNSPECIFIED Qualifiers: Heart failure type: combined systolic and diastolic Heart failure chronicity: acute on chronic Qualified Code(s): I50.43 - Acute on chronic combined systolic (congestive) and diastolic (congestive) heart failure (4) Subendocardial ischemia Code(s): I24.8 - OTHER FORMS OF ACUTE ISCHEMIC HEART DISEASE Assessment/Plan 10/03/2019 Echocardiography: Mildly dilated with severely decreased LVEF 10%, mildly dilated RV with mod decreased RV fxn, severe TR, mod pericardial effusion (1-2 cm) 10/02/2019 Renal US: Chronic medical renal disease with moderate ascites and min right effusion 1. Acute on chronic systolic heart failure with newly diagnosed dilated cardiomyopathy (likely familial as mother also has dilated cardiomyopathy), HFrEF improving 2. Seizure disorder 3. Sinus tachycardia since resolved 4. Acute on CKD improving 5. Subendocardial ischemia 6. HTN cardiomyopathy with failure PLAN: 1. IV diuresis with monitoring diuretic response, renal function and electrolytes, replete K, minimize use of NSAIDs 2. Increased Carvedilol 25 mg BID, Isosorbide [place] 20 BID and Hydralazine 25 mg BID. Entresto and aldosterone inhibition once renal function stabilizes. 3. Right and left heart cardiac catheterization once euvolemic 4. LifeVest fitting prior to discharge and if LVEF remains less than 35% after 90 days, will need ICD for primary prophylaxis 5. Consider genetic testing as outpatient
[2019-10-05] MEDS: hydrALAZINE HCL 25 MG TABLET (FP) PO SCH ×2 (10:38→21:19)
[2019-10-05] MEDS: CARVEDILOL 12.5 MG TABLET (FP) PO SCH ×2 (10:38→21:19)
[2019-10-05] MEDS: HEPARIN NA (PORCINE) 5,000 UNITS/ML 1ML VIAL SQ SCH ×2 (10:38→21:22)
--- NOTE | 2019-10-05 12:58 | PN ---
Progress Note, Physician History of Present Illness: Pt seen and examined at bedside. He is awake and alert. He feels that his breathing is improved. - Current Medication List Current Medications: Active Medications Carvedilol (Coreg -) 25 mg PO BID [facility] Last Admin: 10/05/19 10:38 Dose: 25 mg Furosemide (Lasix Injection -) 40 mg IVPUSH BID@0600,1400 [facility] Last Admin: 10/05/19 06:33 Dose: 40 mg Heparin Sodium (Porcine) (Heparin -) 5,000 unit SQ BID [facility] Last Admin: 10/05/19 10:38 Dose: 5,000 unit Hydralazine HCl (Apresoline -) 25 mg PO BID [facility] Last Admin: 10/05/19 10:38 Dose: 25 mg Isosorbide Mononitrate (Ismo -) 20 mg PO BIDISMO [facility] - Objective Vital Signs: Vital Signs Temperature 97.4 F L 10/05/19 09:42 Pulse Rate 81 10/05/19 09:42 Respiratory Rate 22 H 10/05/19 09:42 Blood Pressure 107/72 10/05/19 09:42 O2 Sat by Pulse Oximetry (%) 100 10/05/19 09:00 Constitutional: Yes: Calm Eyes: Yes: Conjunctiva Clear HENT: Yes: Atraumatic Neck: Yes: Supple Cardiovascular: Yes: S1, S2 Respiratory: Yes: CTA Bilaterally Gastrointestinal: Yes: Soft Genitourinary: Yes: WNL Musculoskeletal: Yes: WNL Edema: Yes Edema: LLE: 2+, RLE: 2+ Integumentary: Yes: Tattoos Neurological: Yes: Oriented Psychiatric: Yes: Oriented Labs: CBC, BMP 10/04/19 06:00 10/05/19 06:35 Assessment/Plan Current Medications Generic Name Dose Route Start Last Admin Trade Name Freq PRN Reason Stop Dose Admin Carvedilol 25 mg 10/04/19 22:00 10/05/19 10:38 Coreg - PO 25 mg BID [facility] Administration Furosemide 40 mg 10/02/19 14:23 10/05/19 06:33 Lasix Injection - IVPUSH 40 mg BID@0600,1400 [facility] Administration Heparin Sodium (Porcine) 5,000 unit 10/02/19 22:00 10/05/19 10:38 Heparin - SQ 5,000 unit BID MARIELA Administration Hydralazine HCl 25 mg 10/03/19 12:15 10/05/19 10:38 Apresoline - PO 25 mg BID MARIELA Administration Isosorbide Mononitrate 20 mg 10/05/19 10:00 Ismo - PO BIDISMO [facility] Laboratory Tests 10/04/19 10:30 Urine Protein Negative Urine Blood Negative Impression 1. JUNAID 2. CHF 3. seizure 4. HTN 5. 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
[2019-10-05] MEDS: ISOSORBIDE MONONITRATE 20 MG TABLET PO SCH ×2 (15:42→18:11)
--- NOTE | 2019-10-05 16:47 | PN ---
Progress Note, Physician - Current Medication List Current Medications: Active Medications Carvedilol (Coreg -) 25 mg PO BID [facility] Last Admin: 10/05/19 10:38 Dose: 25 mg Furosemide (Lasix Injection -) 40 mg IVPUSH BID@0600,1400 [facility] Last Admin: 10/05/19 13:19 Dose: 40 mg Heparin Sodium (Porcine) (Heparin -) 5,000 unit SQ BID [facility] Last Admin: 10/05/19 10:38 Dose: 5,000 unit Hydralazine HCl (Apresoline -) 25 mg PO BID [facility] Last Admin: 10/05/19 10:38 Dose: 25 mg Isosorbide Mononitrate (Ismo -) 20 mg PO BIDISMO [facility] Last Admin: 10/05/19 15:42 Dose: 20 mg - Objective Vital Signs: Vital Signs Temperature 98 F 10/05/19 14:00 Pulse Rate 95 H 10/05/19 14:00 Respiratory Rate 22 H 10/05/19 14:00 Blood Pressure 103/62 10/05/19 14:00 O2 Sat by Pulse Oximetry (%) 100 10/05/19 09:00 Constitutional: Yes: No Distress HENT: Yes: Atraumatic Neck: Yes: Supple Cardiovascular: Yes: Regular Rate and Rhythm Respiratory: Yes: CTA Bilaterally Gastrointestinal: Yes: Normal Bowel Sounds Extremities: Yes: WNL Neurological: Yes: Alert, Oriented Labs: CBC, BMP 10/04/19 06:00 10/05/19 06:35 Problem List - Problems (1) Acute kidney injury Assessment/Plan: renal consult Code(s): N17.9 - ACUTE KIDNEY FAILURE, UNSPECIFIED (2) Congestive heart failure Assessment/Plan: on iv lasix cardio on board Code(s): I50.9 - HEART FAILURE, UNSPECIFIED Qualifiers: Heart failure type: combined systolic and diastolic Heart failure chronicity: acute on chronic Qualified Code(s): I50.43 - Acute on chronic combined systolic (congestive) and diastolic (congestive) heart failure (3) Hypertensive heart and chronic kidney disease Assessment/Plan: on meds Code(s): I13.10 - HYP HRT & CHR KDNY DIS W/O HRT FAIL, W STG 1-4/UNSP CHR KDNY Qualifiers: Chronic kidney disease stage: unspecified stage Heart failure presence: with heart failure Heart failure type: combined systolic and diastolic Heart failure chronicity: acute Qualified Code(s): I13.0 - Hypertensive heart and chronic kidney disease with heart failure and stage 1 through stage 4 chronic kidney disease, or unspecified chronic kidney disease; I50.41 - Acute combined systolic (congestive) and diastolic (congestive) heart failure (4) Subendocardial ischemia Code(s): I24.8 - OTHER FORMS OF ACUTE ISCHEMIC HEART DISEASE
[2019-10-05] MEDS: POTASSIUM CHLORIDE TABS 20 MEQ TABLET.ER (FP) PO SCH (21:20)
[2019-10-06] MEDS: FUROSEMIDE 40 MG/4 ML INJECTABLE VIAL IVPUSH SCH (06:02)
[2019-10-06 07:42] LABS: BLOOD UREA NITROGEN 19.4 mg/dL (7-18); CALCIUM 8.4 mg/dL (8.5-10.1); CREATININE 1.5 mg/dL (0.55-1.3); MAGNESIUM 1.4 mg/dL (1.8-2.4)
[2019-10-06] MEDS ORDERED: MAGNESIUM SULF 50% (8.12 MEQ/2 ML-1 GM VIAL) IVPB ONE (08:01)
[2019-10-06] MEDS ORDERED: PT OWN MED DRAWER 7, Y5N ONE ×3 (10:03→21:47)
[2019-10-06] MEDS: hydrALAZINE HCL 25 MG TABLET (FP) PO SCH ×2 (10:27→22:09)
[2019-10-06] MEDS: MAGNESIUM OXIDE 400 MG TABLET (FP) PO SCH (10:28)
[2019-10-06] MEDS: POTASSIUM CHLORIDE TABS 20 MEQ TABLET.ER (FP) PO SCH (10:28)
[2019-10-06] MEDS: CARVEDILOL 12.5 MG TABLET (FP) PO SCH ×2 (10:28→22:09)
[2019-10-06] MEDS: HEPARIN NA (PORCINE) 5,000 UNITS/ML 1ML VIAL SQ SCH ×2 (10:28→22:09)
[2019-10-06] MEDS: ISOSORBIDE MONONITRATE 20 MG TABLET PO SCH ×2 (10:29→17:21)
--- NOTE | 2019-10-06 10:51 | PN ---
Progress Note, Physician History of Present Illness: Bilateral LE edema, LEWIS and decreased exercise capacity improving with diuresis and afterload reduction. - Current Medication List Current Medications: Active Medications Carvedilol (Coreg -) 25 mg PO BID [facility] Last Admin: 10/06/19 10:28 Dose: 25 mg Furosemide (Lasix Injection -) 40 mg IVPUSH BID@0600,1400 [facility] Last Admin: 10/06/19 06:02 Dose: 40 mg Heparin Sodium (Porcine) (Heparin -) 5,000 unit SQ BID [facility] Last Admin: 10/06/19 10:28 Dose: 5,000 unit Hydralazine HCl (Apresoline -) 25 mg PO BID [facility] Last Admin: 10/06/19 10:27 Dose: 25 mg Isosorbide Mononitrate (Ismo -) 20 mg PO BIDISMO [facility] Last Admin: 10/06/19 10:29 Dose: 20 mg Magnesium Oxide (Mag-Ox -) 400 mg PO DAILY [facility] Stop: 10/12/19 10:01 Last Admin: 10/06/19 10:28 Dose: 400 mg Potassium Chloride (K-Dur -) 40 meq PO DAILY [facility] Last Admin: 10/06/19 10:28 Dose: 40 meq - Objective Vital Signs: Vital Signs Temperature 97.7 F 10/06/19 06:00 Pulse Rate 95 H 10/06/19 06:00 Respiratory Rate 18 10/06/19 06:00 Blood Pressure 125/87 10/06/19 06:00 O2 Sat by Pulse Oximetry (%) 98 10/05/19 21:00 Constitutional: Yes: No Distress, Calm, Thin Neck: Yes: Supple Cardiovascular: Yes: Regular Rate and Rhythm Respiratory: Yes: Regular, CTA Bilaterally Gastrointestinal: Yes: Normal Bowel Sounds, Soft Edema: Yes (Warm and well-perfused) Edema: LLE: Trace, RLE: Trace Labs: CBC, BMP 10/04/19 06:00 10/06/19 05:45 Problem List - Problems (1) Hypertensive heart and chronic kidney disease Code(s): I13.10 - HYP HRT & CHR KDNY DIS W/O HRT FAIL, W STG 1-4/UNSP CHR KDNY Qualifiers: Chronic kidney disease stage: unspecified stage Heart failure presence: with heart failure Heart failure type: combined systolic and diastolic Heart failure chronicity: acute Qualified Code(s): I13.0 - Hypertensive heart and chronic kidney disease with heart failure and stage 1 through stage 4 chronic kidney disease, or unspecified chronic kidney disease; I50.41 - Acute combined systolic (congestive) and diastolic (congestive) heart failure (2) Acute kidney injury Code(s): N17.9 - ACUTE KIDNEY FAILURE, UNSPECIFIED (3) Congestive heart failure Code(s): I50.9 - HEART FAILURE, UNSPECIFIED Qualifiers: Heart failure type: combined systolic and diastolic Heart failure chronicity: acute on chronic Qualified Code(s): I50.43 - Acute on chronic combined systolic (congestive) and diastolic (congestive) heart failure (4) Subendocardial ischemia Code(s): I24.8 - OTHER FORMS OF ACUTE ISCHEMIC HEART DISEASE Assessment/Plan 10/03/2019 Echocardiography: Mildly dilated with severely decreased LVEF 10%, mildly dilated RV with mod decreased RV fxn, severe TR, mod pericardial effusion (1-2 cm) 10/02/2019 Renal US: Chronic medical renal disease with moderate ascites and min right effusion 1. Acute on chronic systolic heart failure with newly diagnosed dilated cardiomyopathy (likely familial as mother also has dilated cardiomyopathy), HFrEF improving 2. Seizure disorder 3. Sinus tachycardia since resolved 4. Acute on CKD improving 5. Subendocardial ischemia 6. HTN cardiomyopathy with failure PLAN: 1. Decrease IV diuresis with monitoring diuretic response, renal function and electrolytes, replete K and Mg, minimize use of NSAIDs 2. Continue Carvedilol 25 mg BID, Isosorbide [place] 20 BID and Hydralazine 25 mg BID. Start Entresto 24/26 bid and eventual aldosterone inhibition as renal function stabilizing. 3. Right and left heart cardiac catheterization once euvolemic 4. LifeVest fitting prior to discharge and if LVEF remains less than 35% after 90 days, will need ICD for primary prophylaxis 5. Consider genetic testing as outpatient
--- NOTE | 2019-10-06 11:05 | PN ---
Progress Note, Physician - Current Medication List Current Medications: Active Medications Carvedilol (Coreg -) 25 mg PO BID [facility] Last Admin: 10/06/19 10:28 Dose: 25 mg Furosemide (Lasix Injection -) 40 mg IVPUSH DAILY [facility] Heparin Sodium (Porcine) (Heparin -) 5,000 unit SQ BID [facility] Last Admin: 10/06/19 10:28 Dose: 5,000 unit Hydralazine HCl (Apresoline -) 25 mg PO BID [facility] Last Admin: 10/06/19 10:27 Dose: 25 mg Isosorbide Mononitrate (Ismo -) 20 mg PO BIDISMO [facility] Last Admin: 10/06/19 10:29 Dose: 20 mg Magnesium Oxide (Mag-Ox -) 400 mg PO DAILY [facility] Stop: 10/12/19 10:01 Last Admin: 10/06/19 10:28 Dose: 400 mg Potassium Chloride (K-Dur -) 40 meq PO DAILY [facility] Last Admin: 10/06/19 10:28 Dose: 40 meq Sacubitril/Valsartan (Entresto 24 Mg-26 Mg Tablet) 1 tab PO BID [facility] - Objective Vital Signs: Vital Signs Temperature 97.7 F 10/06/19 06:00 Pulse Rate 95 H 10/06/19 06:00 Respiratory Rate 18 10/06/19 06:00 Blood Pressure 125/87 10/06/19 06:00 O2 Sat by Pulse Oximetry (%) 98 10/05/19 21:00 Constitutional: Yes: No Distress HENT: Yes: Atraumatic Neck: Yes: Supple Cardiovascular: Yes: Regular Rate and Rhythm Respiratory: Yes: CTA Bilaterally Gastrointestinal: Yes: Normal Bowel Sounds Extremities: Yes: WNL Edema: Yes Edema: LLE: 1+, RLE: 1+ Neurological: Yes: Alert, Oriented Labs: CBC, BMP 10/04/19 06:00 10/06/19 05:45 Problem List - Problems (1) Acute kidney injury Assessment/Plan: renal consult Code(s): N17.9 - ACUTE KIDNEY FAILURE, UNSPECIFIED (2) Congestive heart failure Assessment/Plan: on iv lasix cardio on board Code(s): I50.9 - HEART FAILURE, UNSPECIFIED Qualifiers: Heart failure type: combined systolic and diastolic Heart failure chronicity: acute on chronic Qualified Code(s): I50.43 - Acute on chronic combined systolic (congestive) and diastolic (congestive) heart failure (3) Hypertensive heart and chronic kidney disease Assessment/Plan: on meds Code(s): I13.10 - HYP HRT & CHR KDNY DIS W/O HRT FAIL, W STG 1-4/UNSP CHR KDNY Qualifiers: Chronic kidney disease stage: unspecified stage Heart failure presence: with heart failure Heart failure type: combined systolic and diastolic Heart failure chronicity: acute Qualified Code(s): I13.0 - Hypertensive heart and chronic kidney disease with heart failure and stage 1 through stage 4 chronic kidney disease, or unspecified chronic kidney disease; I50.41 - Acute combined systolic (congestive) and diastolic (congestive) heart failure (4) Subendocardial ischemia Code(s): I24.8 - OTHER FORMS OF ACUTE ISCHEMIC HEART DISEASE
[2019-10-06] MEDS ORDERED: ACETAMINOPHEN 500 MG TABLET (FP) PO PRN (11:19)
[2019-10-06] MEDS: SACUBITRIL/VALSARTAN 24 MG-26 MG TABLET PO SCH ×2 (11:57→22:09)
--- NOTE | 2019-10-06 17:24 | PN ---
Progress Note, Physician History of Present Illness: Pt seen and examined at bedside. He is awake and alert. He denies shortness of breath. He is eager to go home. - Current Medication List Current Medications: Active Medications Acetaminophen (Tylenol -) 500 mg PO Q6H PRN PRN Reason: HEADACHE Carvedilol (Coreg -) 25 mg PO BID [facility] Last Admin: 10/06/19 10:28 Dose: 25 mg Furosemide (Lasix Injection -) 40 mg IVPUSH DAILY [facility] Heparin Sodium (Porcine) (Heparin -) 5,000 unit SQ BID [facility] Last Admin: 10/06/19 10:28 Dose: 5,000 unit Hydralazine HCl (Apresoline -) 25 mg PO BID [facility] Last Admin: 10/06/19 10:27 Dose: 25 mg Isosorbide Mononitrate (Ismo -) 20 mg PO BIDISMO [facility] Last Admin: 10/06/19 17:21 Dose: 20 mg Magnesium Oxide (Mag-Ox -) 400 mg PO DAILY [facility] Stop: 10/12/19 10:01 Last Admin: 10/06/19 10:28 Dose: 400 mg Potassium Chloride (K-Dur -) 40 meq PO DAILY [facility] Last Admin: 10/06/19 10:28 Dose: 40 meq Sacubitril/Valsartan (Entresto 24 Mg-26 Mg Tablet) 1 tab PO BID [facility] Last Admin: 10/06/19 11:57 Dose: 1 tab - Objective Vital Signs: Vital Signs Temperature 98.2 F 10/06/19 14:42 Pulse Rate 92 H 10/06/19 14:42 Respiratory Rate 20 10/06/19 14:42 Blood Pressure 83/61 L 10/06/19 14:42 O2 Sat by Pulse Oximetry (%) 98 10/06/19 09:00 Constitutional: Yes: Calm Eyes: Yes: Conjunctiva Clear HENT: Yes: Atraumatic Cardiovascular: Yes: S1, S2 Respiratory: Yes: CTA Bilaterally Gastrointestinal: Yes: Soft Genitourinary: Yes: WNL Edema: Yes Edema: LLE: 2+, RLE: 2+ Neurological: Yes: Oriented Psychiatric: Yes: Oriented Labs: CBC, BMP 10/04/19 06:00 10/06/19 05:45 Assessment/Plan Current Medications Generic Name Dose Route Start Last Admin Trade Name Freq PRN Reason Stop Dose Admin Acetaminophen 500 mg 10/06/19 11:19 Tylenol - PO Q6H PRN HEADACHE Carvedilol 25 mg 10/04/19 22:00 10/06/19 10:28 Coreg - PO 25 mg BID [facility] Administration Furosemide 40 mg 10/07/19 10:00 Lasix Injection - IVPUSH DAILY [facility] Heparin Sodium (Porcine) 5,000 unit 10/02/19 22:00 10/06/19 10:28 Heparin - SQ 5,000 unit BID [facility] Administration Hydralazine HCl 25 mg 10/03/19 12:15 10/06/19 10:27 Apresoline - PO 25 mg BID [facility] Administration Isosorbide Mononitrate 20 mg 10/05/19 10:00 10/06/19 17:21 Ismo - PO 20 mg BIDISMO [facility] Administration Magnesium Oxide 400 mg 10/06/19 10:00 10/06/19 10:28 Mag-Ox - PO 10/12/19 10:01 400 mg DAILY [facility] Administration Potassium Chloride 40 meq 10/05/19 19:15 10/06/19 10:28 K-Dur - PO 40 meq DAILY [facility] Administration Sacubitril/Valsartan 1 tab 10/06/19 11:00 10/06/19 11:57 Entresto 24 Mg-26 Mg Tablet PO 1 tab BID [facility] Administration Impression 1. JUNAID 2. CHF 3. seizure 4. HTN 5. hypokalemia Plan - agree with decreasing lasix dose - chinese medicine practitioner is improving - monitor potassium - will need outpt follow up - ultrasound with echogenic kidneys - repeat labs in am
[2019-10-07 09:04] LABS: BLOOD UREA NITROGEN 19.7 mg/dL (7-18); CALCIUM 8.1 mg/dL (8.5-10.1); CREATININE 1.5 mg/dL (0.55-1.3); POTASSIUM 4.4 mmol/L (3.5-5.1)
[2019-10-07] MEDS ORDERED: PT OWN MED DRAWER 7, Y5N ONE (09:04)
[2019-10-07] MEDS: MAGNESIUM OXIDE 400 MG TABLET (FP) PO SCH (09:20)
[2019-10-07] MEDS: HEPARIN NA (PORCINE) 5,000 UNITS/ML 1ML VIAL SQ SCH (09:22)
[2019-10-07 09:30] VITALS: BP 99/48; PULSE 93; TEMP 97.9
[2019-10-07] MEDS: hydrALAZINE HCL 25 MG TABLET (FP) PO SCH (09:47)
[2019-10-07] MEDS: CARVEDILOL 12.5 MG TABLET (FP) PO SCH (09:47)
[2019-10-07] MEDS: SACUBITRIL/VALSARTAN 24 MG-26 MG TABLET PO SCH (09:47)
[2019-10-07] MEDS: ISOSORBIDE MONONITRATE 20 MG TABLET PO SCH (09:48)
--- NOTE | 2019-10-07 09:52 | PN ---
Progress Note, Physician History of Present Illness: Bilateral LE edema, LEWIS and decreased exercise capacity improving with diuresis and afterload reduction. - Current Medication List Current Medications: Active Medications Acetaminophen (Tylenol -) 500 mg PO Q6H PRN PRN Reason: HEADACHE Carvedilol (Coreg -) 25 mg PO BID [facility] Last Admin: 10/07/19 09:47 Dose: 25 mg Furosemide (Lasix Injection -) 40 mg IVPUSH DAILY [facility] Last Admin: 10/07/19 09:48 Dose: 40 mg Heparin Sodium (Porcine) (Heparin -) 5,000 unit SQ BID [facility] Last Admin: 10/07/19 09:22 Dose: 5,000 unit Hydralazine HCl (Apresoline -) 25 mg PO BID [facility] Last Admin: 10/07/19 09:47 Dose: 25 mg Isosorbide Mononitrate (Ismo -) 20 mg PO BIDISMO [facility] Last Admin: 10/07/19 09:48 Dose: 20 mg Magnesium Oxide (Mag-Ox -) 400 mg PO DAILY [facility] Stop: 10/12/19 10:01 Last Admin: 10/07/19 09:20 Dose: 400 mg Sacubitril/Valsartan (Entresto 24 Mg-26 Mg Tablet) 1 tab PO BID [facility] Last Admin: 10/07/19 09:47 Dose: 1 tab - Objective Vital Signs: Vital Signs Temperature 97.9 F 10/07/19 09:29 Pulse Rate 93 H 10/07/19 09:29 Respiratory Rate 18 10/07/19 09:29 Blood Pressure 99/48 L 10/07/19 09:29 O2 Sat by Pulse Oximetry (%) 99 10/06/19 21:00 Constitutional: Yes: No Distress, Calm, Thin Neck: Yes: Supple Cardiovascular: Yes: Regular Rate and Rhythm, Murmur (2/6 SM) Respiratory: Yes: Regular, CTA Bilaterally Gastrointestinal: Yes: Normal Bowel Sounds, Soft Edema: Yes Edema: LLE: 1+, RLE: 1+ Labs: CBC, BMP 10/04/19 06:00 10/07/19 06:00 - ....Imaging EKG: Report Reviewed (Tele: NSR) Problem List - Problems (1) Hypertensive heart and chronic kidney disease Code(s): I13.10 - HYP HRT & CHR KDNY DIS W/O HRT FAIL, W STG 1-4/UNSP CHR KDNY Qualifiers: Chronic kidney disease stage: unspecified stage Heart failure presence: with heart failure Heart failure type: combined systolic and diastolic Heart failure chronicity: acute Qualified Code(s): I13.0 - Hypertensive heart and chronic kidney disease with heart failure and stage 1 through stage 4 chronic kidney disease, or unspecified chronic kidney disease; I50.41 - Acute combined systolic (congestive) and diastolic (congestive) heart failure (2) Acute kidney injury Code(s): N17.9 - ACUTE KIDNEY FAILURE, UNSPECIFIED (3) Congestive heart failure Code(s): I50.9 - HEART FAILURE, UNSPECIFIED Qualifiers: Heart failure type: combined systolic and diastolic Heart failure chronicity: acute on chronic Qualified Code(s): I50.43 - Acute on chronic combined systolic (congestive) and diastolic (congestive) heart failure (4) Subendocardial ischemia Code(s): I24.8 - OTHER FORMS OF ACUTE ISCHEMIC HEART DISEASE Assessment/Plan 10/03/2019 Echocardiography: Mildly dilated with severely decreased LVEF 10%, mildly dilated RV with mod decreased RV fxn, severe TR, mod pericardial effusion (1-2 cm) 10/02/2019 Renal US: Chronic medical renal disease with moderate ascites and min right effusion 1. Acute on chronic systolic heart failure with newly diagnosed dilated cardiomyopathy (likely familial as mother also has dilated cardiomyopathy), HFrEF improving 2. Seizure disorder 3. Sinus tachycardia since resolved 4. Acute on CKD improving 5. Subendocardial ischemia 6. HTN cardiomyopathy with failure PLAN: 1. Start oral diuresis with Lasix 20 qd and Aldactone 25 qd qd with monitoring diuretic response, renal function and electrolytes, replete K and Mg, minimize use of NSAIDs 2. Continue Carvedilol 25 mg BID, Isosorbide [place] 20 BID and Hydralazine 25 mg BID. Continue Entresto 24/26 bid and eventual aldosterone inhibition as renal function stabilizing. 3. Right and left heart cardiac catheterization once euvolemic 4. LifeVest fitting prior to discharge and if LVEF remains less than 35% after 90 days, will need ICD for primary prophylaxis 5. Consider genetic testing as outpatient 6. Patient to obtain health insurance so we can continue work-up as outpatient, d/c planning with f/u in office
[2019-10-07] MEDS ORDERED: FUROSEMIDE 40 MG/4 ML INJECTABLE VIAL IVPUSH SCH (10:00)
--- NOTE | 2019-10-07 11:13 | DS ---
Physical Examination Vital Signs: Vital Signs Temperature 97.9 F 10/07/19 09:29 Pulse Rate 93 H 10/07/19 09:29 Respiratory Rate 18 10/07/19 09:29 Blood Pressure 99/48 L 10/07/19 09:29 O2 Sat by Pulse Oximetry (%) 99 10/07/19 09:00 Constitutional: Yes: No Distress HENT: Yes: Atraumatic Neck: Yes: Supple Cardiovascular: Yes: Regular Rate and Rhythm Respiratory: Yes: CTA Bilaterally Gastrointestinal: Yes: Normal Bowel Sounds Extremities: Yes: WNL Edema: No Neurological: Yes: Alert, Oriented Labs: CBC, BMP 10/04/19 06:00 10/07/19 06:00 Discharge Summary Problems reviewed: Yes Reason For Visit: CHF Current Active Problems Acute kidney injury (Acute) Congestive heart failure (Acute) Dilated cardiomyopathy (Acute) HFrEF (heart failure with reduced ejection fraction) (Acute) Hypertensive heart and chronic kidney disease (Acute) Subendocardial ischemia (Acute) Condition: Stable - Instructions Diet, Activity, Other Instructions: check potassium and magnesium level in 1 week if normal then stop poatssium and magnesium Referrals: Diego Ashton MD [Staff Physician] - Riley Francisco MD [Staff Physician] - Torrie Pink MD [Staff Physician] - Disposition: HOME - Home Medications Comprehensive Discharge Medication List: Ambulatory Orders levETIRAcetam [Keppra -] 500 mg PO BID 10/02/19 Carvedilol [Coreg -] 25 mg PO BID #60 tablet 10/07/19 Furosemide [Lasix -] 20 mg PO DAILY #30 tablet 10/07/19 Isosorbide Mononitrate [Ismo -] 20 mg PO BIDISMO #60 tablet 10/07/19 Magnesium Oxide [Mag-Ox -] 400 mg PO DAILY #30 tablet 10/07/19 Potassium Chloride [K-Dur -] 40 meq PO DAILY #30 tablet.er 10/07/19 Sacubitril/Valsartan [Entresto 24 mg-26 mg Tablet] 1 tab PO BID #60 tablet 10/07 Spironolactone [Aldactone -] 25 mg PO DAILY #30 tablet 10/07/19 hydrALAZINE HCL [Apresoline -] 25 mg PO BID #60 tablet 10/07/19
[2019-10-08] MEDS ORDERED: FUROSEMIDE 20 MG TABLET (FP) PO SCH (10:00)
[2019-10-08] MEDS ORDERED: SPIRONOLACTONE 25 MG TABLET (FP) PO SCH (10:00)
== END 2019-10-07 11:41 | disposition home or self-care (01) | DRG 205 ==
LOC: JER 11:05 → JERBED 13:43 → J4W 10-03 13:45
PROVIDERS: ADMIT Internal Medicine; ATTEND Internal Medicine
DX: I42.0 Dilated cardiomyopathy (principal); I11.0 Hypertensive heart disease with heart failure; I50.23 Acute on chronic systolic (congestive) heart failure; N17.9 Acute kidney failure, unspecified; G40.909 Epilepsy, unspecified, not intractable, without status epilepticus; I42.9 Cardiomyopathy, unspecified; R00.0 Tachycardia, unspecified; I24.8 Other forms of acute ischemic heart disease; E87.6 Hypokalemia
CPT/HCPCS: 36415; 71046-TC-FY; 76775-TC; 80048; 80053; 80061; 81003; 82550; 82553; 82565; 83036; 83721; 83735; 83880; 84439; 84443; 84484; 84540; 85025; 93005; 93010; 93306-TC; 99285-25; J1644